=== PATIENT | male | born 1940 | race Caucasian/White ===

== ENCOUNTER 2020-12-26 19:12 | Emergency (ER) | payer MEDICARE ==
[2020-12-26] MEDS ORDERED: Diphtheria,Pertussis(Acell),Tetanus Vaccine 0.5 ML Syringe IM ONE (19:33)
[2020-12-26] MEDS ORDERED: Lidocaine 1% 10 ML MDV INJECT ONE (19:33)
--- NOTE | 2020-12-26 19:42 | EDM.PDOC ---
ED HPI GENERAL MEDICAL PROBLEM - General Chief Complaint: Laceration Stated Complaint: CUT ON RIGHT THUMB Time Seen by Provider: 12/26/20 19:33 Source of Information: Reports: Patient, RN Notes Reviewed History Limitations: Reports: No Limitations - History of Present Illness INITIAL COMMENTS - FREE TEXT/NARRATIVE: Patient is an 80-year-old male who presents to the ER for a laceration of his right. Patient notes he was grinding metal using a grinding wheel, when the wheel glanced off the metal, and ended up lacerating the tip of his right thumb. About a 1 cm laceration in a vertical fashion of the patient's distal anterior thumb. He is not having any numbness or tingling around injury, he is not having any sort of tendon injury apparent. He is not up-to-date on his tetanus booster. Patient denies any other sick-like symptoms, fever/chills, cough/shortness of breath, nausea/vomiting/diarrhea. Right Hand Pain Score (Numeric/FACES): 1 - Related Data Allergies Allergy/AdvReac Type Severity Reaction Status Date / Time No Known Allergies Allergy Verified 12/26/20 19:29 Home Meds: Home Meds Levothyroxine [Synthroid] 88 mcg PO DAILY 12/26/20 [History] Losartan [Cozaar] 50 mg PO DAILY 12/26/20 [History] Warfarin [Coumadin] 2.5 mg PO DAILY 12/26/20 [History] atorvaSTATin [Lipitor] 20 mg PO DAILY 12/26/20 [History] cephALEXin [Cephalexin] 500 mg PO TID 7 Days #21 capsule 12/26/20 [Rx] Past Medical History Cardiovascular History: Reports: High Cholesterol, Hypertension Endocrine/Metabolic History: Reports: Hypothyroidism Social & Family History - Tobacco Use Tobacco Use Status *Q: Never Tobacco User Second Hand Smoke Exposure: No - Caffeine Use Caffeine Use: Reports: None ED ROS GENERAL - Review of Systems Review Of Systems: Comprehensive ROS is negative, except as noted in HPI. ED EXAM, SKIN/RASH Exam: See Below Exam Limited By: No Limitations General Appearance: Alert, WD/WN, No Apparent Distress Peripheral Pulses: 2+: Radial (L), Radial (R) Extremities: Normal Range of Motion, Normal Capillary Refill Neurological: Alert, Oriented, Normal Cognition, No Motor/Sensory Deficits Psychiatric: Normal Affect, Normal Mood Skin: Warm, Dry, Normal Color, No Rash, Wound/Incision (1 cm linear laceration to anterior distal thumb) ED SKIN PROCEDURES - Laceration/Wound Repair Right Anterior Distal Digit - 1st (Thumb) Appearance: Subcutaneous, Linear, Mildly Contaminated Distal NVT: Neuro & Vascular Intact Anesthetic Type: Local Local Anesthesia - Lidocaine (Xylocaine): 1% Plain Local Anesthetic Volume: 3cc Skin Prep: Chlorhexidine (Hibiciens), Saline Exploration/Debridement/Repair: Wound Explored, In a Bloodless Field, Explored to Base, No Foreign Material Found Closed with: Sutures Lac/Wound length In cm: 1 Suture Size: 4-0 # of Sutures: 4 Suture Type: Prolene, Interrupted, Simple Sterile Dressing Applied: Nurse Tetanus Status Addressed: Yes Complications: No Course - Vital Signs Last Recorded V/S: Last Vital Signs Temp 98.2 F 12/26/20 19:27 Pulse 84 12/26/20 19:27 Resp 17 12/26/20 19:27 BP 160/81 H 12/26/20 19:27 Pulse Ox 100 12/26/20 19:27 - Orders/Labs/Meds Orders: Active Orders 24 hr Category Date Time Status Vaccines to be Administered [RC] PER UNIT ROUTINE Care 12/26/20 19:33 Ordered Meds: Medications Discontinued Medications Generic Name Dose Route Start Last Admin Trade Name Jonathonq PRN Reason Stop Dose Admin Diphtheria/Tetanus/Acell Pertussis 0.5 ml 12/26/20 19:33 12/26/20 19:45 Diphtheria,Pertussis(Acell),Tetanus Vaccine 0.5 Ml Syringe IM 12/26/20 19:34 0.5 ml .ONCE ONE Administration Lidocaine HCl 10 ml 12/26/20 19:33 12/26/20 19:45 Lidocaine 1% 10 Ml Mdv INJECT 12/26/20 19:34 10 ml ONETIME ONE Administration Departure - Departure Time of Disposition: 19:44 Disposition: Home, Self-Care 01 Condition: Good Clinical Impression: Laceration of thumb Qualifiers: Encounter type: initial encounter Damage to nail status: without damage Foreign body presence: without foreign body Laterality: right Qualified Code(s): S61.011A - Laceration without foreign body of right thumb without damage to nail, initial encounter - Discharge Information *PRESCRIPTION DRUG MONITORING PROGRAM REVIEWED*: No *COPY OF PRESCRIPTION DRUG MONITORING REPORT IN PATIENT LUPE: No Prescriptions: cephALEXin [Cephalexin] 500 mg PO TID 7 Days #21 capsule Instructions: Sutures, Yovanny, or Adhesive Wound Closure, [id number] Referrals: PCP,Not In Area [Primary Care Provider] - Forms: ED Department Discharge Additional Instructions: You have been evaluated in the ED for your laceration. Sutures will need to stay in for 10 to 14 days. Your tetanus vaccine was updated at today's visit. 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 This medication was electronically sent to the [facility] pharmacy located on [place]. You may return to the ED or any clinic for removal. Please keep this area clean and dry, you may cleanse with regular soap and water. No vigorous scrubbing. Please try to avoid submerging the affected area in water for prolonged periods of time until the sutures are removed. Watch out for signs of infection like increased redness, swelling, pain at the laceration site, or if you should develop any fevers or chills. Please return to ED if your symptoms change or worsen. Sepsis Event Note (ED) - Evaluation Sepsis Screening Result: No Definite Risk - Focused Exam Vital Signs: Vital Signs Temp Pulse Resp BP Pulse Ox 12/26/20 19:27 98.2 F 84 17 160/81 H 100 - My Orders Last 24 Hours: My Active Orders 12/26/20 19:33 Vaccines to be Administered [RC] PER UNIT ROUTINE - Assessment/Plan Last 24 Hours: My Active Orders 12/26/20 19:33 Vaccines to be Administered [RC] PER UNIT ROUTINE
== END 2020-12-26 20:35 | disposition home or self-care (01) ==
LOC: JD.ED 19:12
DX: S61.011A Laceration without foreign body of right thumb without damage to nail, initial encounter (principal); E78.00 Pure hypercholesterolemia, unspecified; I10 Essential (primary) hypertension; E03.9 Hypothyroidism, unspecified; Z79.01 Long term (current) use of anticoagulants; Z79.899 Other long term (current) drug therapy; Z23 Encounter for immunization; W26.8XXA Contact with other sharp object(s), not elsewhere classified, initial encounter
CPT/HCPCS: 12001; 90471; 90715; 99282-25; 99283